=== PATIENT | female | born 1965 | race Caucasian/White ===

== ENCOUNTER → 2019-08-17 09:28 | Outpatient (BNVA) | payer OTHER, SELFPAY | PROVIDERS: Family Provider Nurse Practitioner Family; PCP Registered Nurse; Visit Provider Registered Nurse | DX: E11.9 Type 2 diabetes mellitus without complications (principal); L40.9 Psoriasis, unspecified; I10 Essential (primary) hypertension | CPT/HCPCS: 80053; 80061; 83036; 85025 ==

== ENCOUNTER → 2020-01-16 12:42 | Outpatient (BNVA) | payer OTHER, SELFPAY | PROVIDERS: Family Provider Nurse Practitioner Family; PCP Registered Nurse; Visit Provider Nurse Practitioner Family | DX: Z20.828 Contact with and (suspected) exposure to other viral communicable diseases (principal) | CPT/HCPCS: 87635 ==

== ENCOUNTER → 2020-02-23 11:44 | Outpatient (BNVA) | payer OTHER, SELFPAY | PROVIDERS: Family Provider Nurse Practitioner Family; PCP Registered Nurse; Visit Provider Registered Nurse | DX: F41.1 Generalized anxiety disorder (principal); I10 Essential (primary) hypertension; E11.69 Type 2 diabetes mellitus with other specified complication; E78.5 Hyperlipidemia, unspecified; E55.9 Vitamin D deficiency, unspecified | CPT/HCPCS: 80053; 82306; 83036; 85025 ==

== ENCOUNTER → 2020-08-24 10:55 | Outpatient (BNVA) | payer OTHER, SELFPAY | PROVIDERS: Family Provider Nurse Practitioner Family; PCP Registered Nurse; Visit Provider Registered Nurse | DX: E11.69 Type 2 diabetes mellitus with other specified complication (principal); F41.1 Generalized anxiety disorder; I10 Essential (primary) hypertension; F41.9 Anxiety disorder, unspecified; E78.5 Hyperlipidemia, unspecified; G47.00 Insomnia, unspecified | CPT/HCPCS: 80053; 83036 ==

== ENCOUNTER → 2021-02-20 11:47 | Outpatient (BNVA) | payer OTHER, SELFPAY | PROVIDERS: Family Provider Nurse Practitioner Family; PCP Registered Nurse; Visit Provider Registered Nurse | DX: E78.5 Hyperlipidemia, unspecified (principal); E11.9 Type 2 diabetes mellitus without complications; I10 Essential (primary) hypertension | CPT/HCPCS: 80053; 80061; 83036; 85025 ==

== ENCOUNTER → 2021-02-21 00:01 | Outpatient (BNVA) | payer OTHER, SELFPAY | PROVIDERS: Family Provider Nurse Practitioner Family; PCP Registered Nurse; Visit Provider Registered Nurse | DX: E87.1 Hypo-osmolality and hyponatremia (principal) | CPT/HCPCS: 84443 ==

== ENCOUNTER → 2021-03-12 00:01 | Outpatient (BNVA) | payer OTHER, SELFPAY | PROVIDERS: Family Provider Nurse Practitioner Family; PCP Registered Nurse; Visit Provider Registered Nurse | DX: E87.1 Hypo-osmolality and hyponatremia (principal) | CPT/HCPCS: 80053 ==

== ENCOUNTER → 2021-08-23 09:35 | Outpatient (BNVA) | payer OTHER, SELFPAY | PROVIDERS: Family Provider Nurse Practitioner Family; PCP Registered Nurse; Visit Provider Registered Nurse | DX: F41.1 Generalized anxiety disorder (principal); E11.69 Type 2 diabetes mellitus with other specified complication; E78.5 Hyperlipidemia, unspecified; G47.00 Insomnia, unspecified; F41.9 Anxiety disorder, unspecified; I10 Essential (primary) hypertension | CPT/HCPCS: 80053; 83036 ==

== ENCOUNTER → 2022-03-08 11:10 | Outpatient (BNVA) | payer OTHER, SELFPAY | PROVIDERS: Family Provider Nurse Practitioner Family; PCP Registered Nurse; Visit Provider Registered Nurse | DX: I10 Essential (primary) hypertension (principal); E78.5 Hyperlipidemia, unspecified; G47.00 Insomnia, unspecified; E11.69 Type 2 diabetes mellitus with other specified complication | CPT/HCPCS: 80053; 80061; 83036 ==

== ENCOUNTER → 2022-08-12 11:33 | Outpatient (BNVA) | payer OTHER, SELFPAY | PROVIDERS: Family Provider Nurse Practitioner Family; PCP Registered Nurse; Visit Provider Registered Nurse | DX: E11.69 Type 2 diabetes mellitus with other specified complication (principal); E78.5 Hyperlipidemia, unspecified | CPT/HCPCS: 80053; 80061; 82043; 83036 ==

== ENCOUNTER → 2023-01-18 13:32 | Outpatient (BNVA) | payer OTHER, SELFPAY | PROVIDERS: Family Provider Nurse Practitioner Family; PCP Registered Nurse; Visit Provider Emergency Medicine | DX: B34.9 Viral infection, unspecified (principal); J06.9 Acute upper respiratory infection, unspecified; U07.1 COVID-19 | CPT/HCPCS: 87400 ==

== ENCOUNTER → 2023-02-25 10:02 | Outpatient (BNVA) | payer OTHER, SELFPAY | PROVIDERS: Family Provider Nurse Practitioner Family; PCP Registered Nurse; Visit Provider Registered Nurse | DX: E11.9 Type 2 diabetes mellitus without complications (principal); F41.1 Generalized anxiety disorder; I10 Essential (primary) hypertension; E11.69 Type 2 diabetes mellitus with other specified complication; E78.5 Hyperlipidemia, unspecified; F41.9 Anxiety disorder, unspecified | CPT/HCPCS: 80053; 80061; 83036; 84443; 85025 ==

== ENCOUNTER 2023-06-19 08:00 | Day surgery (SDC) | payer OTHER, SELFPAY ==
--- NOTE | 2023-06-19 08:15 | W.PM.OPSFHP ---
Same Day Surgery H&P Indication for Procedure/HPI DATE OF PROCEDURE: June 19, 2023 CHIEF COMPLAINT/INDICATIONFOR SURGICAL PROCEDURE: need for screening colonoscopy PREOP DIAGNOSIS: need for screening colonoscopy PLANNED PROCEDURE: Operation Date: 06/19/23 09:15 Proposed Procedures p 24328 colon G0121 screen colon A risk Z12.11(Not Applicable) - Barney Cardenas MD Medications/Allergies* Home Medications Medication Instructions Recorded Confirmed Type valacyclovir 1 gram tablet 1,000 mg PO BID PRN fever blisters 06/16/23 06/16/23 History (Valtrex) Allergies/Adverse Reactions Allergy/AdvReac Type Severity Reaction Status Date / Time egg Allergy ALGY-Nasal Verified 06/16/23 12:47 Discharge milk Allergy ALGY-Nasal Verified 06/16/23 12:47 Discharge Sulfa (Sulfonamide Allergy RASH Verified 06/16/23 12:47 Antibiotics) wheat Allergy ALGY-Nasal Verified 06/16/23 12:47 Discharge Pertinent History/Comorbid Conditions* Medical History (Updated 06/27/20 @ 11:22 by Magalie Villa DO) Lichen sclerosus et atrophicus Insomnia disorder Vitamin D deficiency Anxiety Hyperlipidemia associated with type 2 diabetes mellitus Obstructive Sleep Apnea-Hypopnea Syndrome Diabetes mellitus Essential hypertension Family History (Updated 12/02/19 @ 11:04 by Yasmin Nettles MA) Diabetes Father Grandmother CAD (coronary artery disease) Grandfather Hypertension Father Mother Stroke Father Social History Smoking and tobacco/nicotine status: never used tobacco/nicotine Alcohol intake: never Substance/Drug Use: never Adopted: No Caregiver/support person: No Lives independently: No Household members: spouse Marital status: service: No Current occupational status: employed Sexually active: Yes Do you think of yourself as: Straight/Heterosexual Current gender identity: Female Pertinent Exam Findings alert, oriented x 3, clear to auscultation bilaterally and regular rate & rhythm Recommendations Surgery/Procedure today Coding Level of Care Code Acute Code for Chg Fwd
[2023-06-19 08:24] VITALS: BP 119/80; PULSE 75; RESP 16; TEMP 36.1; O2SAT 93; BMI 34.3
--- NOTE | 2023-06-19 08:42 | ANES.PREANE2 ---
Pre-Anesthetic Assessment Height/Weight: Height 1.6 m Weight 87.997 kg Temp Pulse Resp BP Pulse Ox O2 Del Method 97.0 F L 75 16 119/80 93 Room Air 06/19/23 08:24 06/19/23 08:24 06/19/23 08:24 06/19/23 08:24 06/19/23 08:24 06/19/23 08:24 Preop Diagnosis: need for screening colonoscopy Operation Date: 06/19/23 09:15 Proposed Procedures p 85862 colon G0121 screen colon A risk Z12.11(Not Applicable) - Barney Cardenas MD Familial anesthetic complications: None Was Beta Mary taken within 24 hours: N/A Was Clonidine taken within 24 hours: N/A Last intake: Intake Last Liquid Date 06/18/23 Last Liquid Time 23:30 Last Solid Date 06/17/23 Last Solid Time 19:00 Social No alcohol occasional nicotine patch use Exam alert, oriented x 3 and regular rate & rhythm Airway Mallampati: Class II Dentition: full History/ROS No significant history except as noted Pulmonary Sleep Apnea CV/HEM Hypertension None reported Hepatic previous had fatty liver, pt states that has now resolved GI None reported Metabolic Diabetes Mellitus and Hyperlipidemia [facility] [place] None reported Neuropsych Anxiety Anesthetic Plan ASA status: 3 Anesthesia: Anesthesia Evaluation and MAC Risk of > 500 ml blood loss (7ml/kg in children): No Medications/Allergies Home Medications Medication Instructions Recorded Confirmed Last Taken Type miscellaneous medical supply See Rx Instructions miscellaneous 01/09/20 06/16/23 06/15/23 Rx .COMPLEX CHASTITY #1 ea clobetasol 0.05 % topical cream 1 applic topical DAILY #60 grams 02/23/20 06/19/23 06/17/23 Rx ciclopirox 1 % shampoo 5 ml topical .three times weekly 06/27/20 06/19/23 06/16/23 Rx #120 mL clindamycin phosphate 1 % lotion 1 applic topical BID #60 mL 06/27/20 06/16/23 Unknown Rx clindamycin phosphate 1 % topical 1 applic topical BID #60 mL 06/27/20 06/19/23 Unknown Rx solution clobetasol 0.05 % scalp solution 1 applic topical DAILY #50 mL 06/27/20 06/19/23 06/16/23 Rx alprazolam 0.5 mg tablet (Xanax) 0.5 mg PO .PRN 30 days #10 tabs 02/25/23 06/19/23 2 Weeks Ago Rx ~06/05/23 blood-glucose meter,continuous #1 ea 02/25/23 03/17/23 Unknown Rx (Dexcom G6 Building Principal) blood-glucose sensor (Dexcom G6 #3 ea 02/25/23 03/17/23 Unknown Rx Sensor device) blood-glucose transmitter (Dexcom #1 ea 02/25/23 03/17/23 Unknown Rx G6 Transmitter device) telmisartan 40 mg tablet (Micardis) 40 mg PO DAILY #90 tabs 02/25/23 06/19/23 06/18/23 Rx semaglutide 2 mg/dose (8 mg/3 mL) See Rx Instructions .Route 05/05/23 06/16/23 06/01/23 Rx subcutaneous pen injector (Ozempic) .COMPLEX #3 mL valacyclovir 1 gram tablet 1,000 mg PO BID PRN fever blisters 06/16/23 06/19/23 1 Week Ago History (Valtrex) ~06/12/23 Allergies Allergy/AdvReac Type Severity Reaction Status Date / Time egg Allergy ALGY-Nasal Verified 06/16/23 12:47 Discharge milk Allergy ALGY-Nasal Verified 06/16/23 12:47 Discharge Sulfa (Sulfonamide Allergy RASH Verified 06/16/23 12:47 Antibiotics) wheat Allergy ALGY-Nasal Verified 06/16/23 12:47 Discharge PFSH Anesthesia Medical History Lichen sclerosus et atrophicus Insomnia disorder Vitamin D deficiency Anxiety Hyperlipidemia associated with type 2 diabetes mellitus Obstructive Sleep Apnea-Hypopnea Syndrome Diabetes mellitus Essential hypertension Family History Grandfather CAD (coronary artery disease) Father Diabetes Hypertension Stroke Grandmother Diabetes Mother Hypertension Social History Smoking and tobacco/nicotine status: never used tobacco/nicotine Alcohol intake: never Substance/Drug Use: never Adopted: No Caregiver/support person: No Lives independently: No Household members: spouse Marital status: service: No Current occupational status: employed Sexually active: Yes Do you think of yourself as: Straight/Heterosexual Current gender identity: Female Data Anesthesia Cardiac Studies: No Data to Display
[2023-06-19] MEDS: sodium chloride 0.9% 1,000 ML 30 ML IV (08:46)
[2023-06-19 08:47] LABS: Glucose Point of Care 140 mg/dL (70-110)
[2023-06-19 09:53] VITALS: BP 104/68; PULSE 75; RESP 16; TEMP 36.3; O2SAT 99
[2023-06-19 10:09] VITALS: BP 112/65; PULSE 70; RESP 16; O2SAT 100
== END 2023-06-19 10:16 | disposition home or self-care (01) ==
PROVIDERS: Family Provider Nurse Practitioner Family; PCP Registered Nurse; Visit Provider Surgery
PROC: 0DJD8ZZ Inspection of Lower Intestinal Tract, Via Natural or Artificial Opening Endoscopic (ICD-10-PCS; CPT 45378; principal; 2023-06-19 09:15)
DX: Z12.11 Encounter for screening for malignant neoplasm of colon (principal); F41.9 Anxiety disorder, unspecified; E78.5 Hyperlipidemia, unspecified; E11.69 Type 2 diabetes mellitus with other specified complication; G47.33 Obstructive sleep apnea (adult) (pediatric); I10 Essential (primary) hypertension
CPT/HCPCS: 36416; 45378; 82962; J2704; J7030